=== PATIENT | male | born 1965 | race Caucasian/White ===

== ENCOUNTER 2023-07-20 11:46 | Emergency (ER) | payer SELFPAY ==
[2023-07-20] VITALS (7 sets, daily range): BP systolic 123–136; BP diastolic 79–89; PULSE 66–82; RESP 11–19; TEMP 36.4–37.1; O2SAT 96–100; BMI 31.4
--- NOTE | 2023-07-20 12:21 | EKG12_ITS ---
Test Reason : GENERAL Blood Pressure : / mmHG Vent. Rate : 071 BPM Atrial Rate : 071 BPM P-R Int : 176 ms QRS Dur : 092 ms QT Int : 378 ms P-R-T Axes : 064 012 025 degrees QTc Int : 410 ms Normal sinus rhythm Normal ECG Confirmed by ROMAIN GUPTA MD ([id number]), web content editor KARLA MCCONNELL ([id number]) on 07/21/2023 9:02:02 AM Referred By: Confirmed By:ROMAIN GUPTA MD
--- NOTE | 2023-07-20 12:30 | EX.ED.UPPERE ---
HPI History of Present Illness Chief Complaint: Upper Extremity Injury Informant: patient Narrative Narrative: 58-year-old male presenting to the emergency room with bilateral intermittent arm and chest numbness. Patient states that typically when he exerts himself very hard he gets a numb like sensation of the entirety of both arms and across to his anterior chest. He denies dyspnea nausea vomiting jaw pain or sweating. He states has been happening for couple weeks. He states that he can feel things in the arms with touch but it is a numb like sensation. He denies any difficulties in between episodes. He is a longtime smoker. He states he is worried about his heart. He denies cough or fever. PFSH PFSH Home Medications NK 07/20/23 [History Last Taken Unknown] Allergy/AdvReac Type Severity Reaction Status Date / Time No Known Allergies Allergy Verified 07/20/23 11:49 Surgical History H/O wrist surgery Social History (Updated 07/20/23 @ 12:[address] Jeb Sánchez, ) Smoking Status: Current every day smoker tobacco type: e-cigarettes ROS ROS ED Constitutional Constitutional ED: Denies chills, fever(s) or weight loss Eyes Eyes: Denies change in vision or diplopia ENT ENT ED: Denies ear pain, rhinorrhea or sore throat Cardiovascular Cardiovascular: Reports chest pain; Denies orthopnea, palpitations or racing heartbeat Respiratory/Chest Respiratory/Chest: Denies cough, dyspnea or orthopnea Gastrointestinal Gastrointestinal: Denies abdominal pain, diarrhea, nausea or vomiting Genitourinary Genitourinary ED: Denies dysuria, hematuria or urinary frequency Musculoskeletal Musculoskeletal: Denies arthralgias or myalgias Integumentary Denies abscess or rash Neurologic Neurologic: Reports paresthesias; Denies headache(s) or weakness Psychiatric Psychiatric: Denies anxiety, depression, suicidal ideation or suicidal thoughts Endocrine Endocrinology: Denies polydipsia, polyphagia or polyuria Allergic/Immunologic Allergic/Immunologic ED: Denies mouth swelling, tongue swelling or urticaria EXAM Physical Exam Const Vital Signs: 07/20/23 11:48 Temperature 98.8 F Temperature Source Temporal Pulse Rate 82 Respiratory Rate 14 Blood Pressure 136/84 H Blood Pressure Mean 101 Pulse Ox 100 Oxygen Delivery Method Room Air Positive well nourished and well developed General Appearance ED: well developed HEENT Reports normocephalic, head/scalp atraumatic and moist mucous membranes Eyes PERRL and EOMs intact bilaterally Neck no lymphadenopathy, supple and no JVD Resp normal respiratory effort and clear to auscultation bilaterally Cardio regular rate, regular rhythm and no murmurs GI normal to inspection, nondistended, normoactive bowel sounds and non-tender Palpation: soft Back/Spine no CVA tenderness and normal ROM Extremity normal to inspection General Extremety ED: Negative for edema General Extremity: Negative for edema Neuro oriented x3 and CN's II-XII intact bilaterally Sensorium / Orientation: alert Motor Exam: strength 5/5 throughout Psych mental status grossly normal Mood & Affect: Negative for depressed or tearful Skin no rashes or lesions noted and no wounds MDM MDM MDM Narrative Medical decision making narrative: Differential diagnosis includes but not limited to acute coronary syndrome lung disease such as COPD electrolyte disturbance vascular compromise. My depend interpretation of the chest x-ray is no acute process. Normal mediastinal silhouette EKG is a sinus rhythm without concerning features of ACS. 2 sets of cardiac enzymes are normal. Electrolytes are stable within normal limits glucose of 115. Creatinine is normal. I am not seeing evidence of any cardiac damage. I explained to the patient that I cannot fully rule out the possibility that he could have a blockage in one of his coronary arteries. His heart score is low enough that he could follow-up as an outpatient for stress testing. He does not have a primary care doctor suddenly refer him to cardiology. I do not believe he has aortic dissection. I am not seeing evidence of vena cava syndrome. It is intermittent in nature and does not have any neck pain so I doubt this would be cervical stenosis. I sat down and explained the above results with the patient as well as possible etiologies for his symptoms. He is amendable to follow-up and I will provide him the resources to do so. He understands should his symptoms become constant or worse he needs return to the emergency department for evaluation.. History & Record Review Discussion w/independent historian: Patient Lab Data Attestation: I reviewed the patient's lab results. Labs: Laboratory Tests 07/20/23 07/20/23 Range/Units 14:30 12:35 WBC 7.4 (4.4-11.0) K/mm3 RBC 4.92 (4.6-6.2) M/mm3 Hgb 14.3 (13.0-16.5) g/dL Hct 43.9 (40-54) % MCV 89.2 (80-94) fL MCH 29.1 (27.0-32.0) pg MCHC 32.6 (32-36) g/dL RDW Std Deviation 41.5 (35.1-43.9) fl RDW Coeff of Shazia 12.7 (11.6-14.6) % Plt Count 277 (150-450) K/mm3 MPV 10.0 (6.2-12.0) fl Immature Gran % (Auto) 0.300 (0.0-0.9) % Neut % (Auto) 54.3 (47-70) % Lymph % (Auto) 31.3 (19-41) % [place] % (Auto) 7.6 (0-10) % Eos % (Auto) 5.4 H (0-5) % Baso % (Auto) 1.1 H (0-1) % Absolute Neuts (auto) 4.0 (2.0-7.7) X10^3/uL Absolute Lymphs (auto) 2.30 (0.83-4.51) X10^3/uL Nucleated RBC % 0 (0-5) % Sodium 139 (136-145) mmol/L Potassium 3.8 (3.5-5.1) mmol/L Chloride 108 H (98-107) mmol/L Carbon Dioxide 25.0 (21.0-32.0) mmol/L Anion Gap 6 (5-15) BUN 16 (7-18) mg/dL Creatinine 0.80 (0.70-1.30) mg/dL Estim Creat Clear Calc 104.99 ml/min Est GFR (MDRD) Af Amer 127 (>60) mL/min Est GFR (MDRD) Non-Af 105 (>60) mL/min BUN/Creatinine Ratio 20.0 (10-20) RATIO Glucose 115 H (74-106) mg/dL Calcium 8.8 (8.5-10.1) mg/dL Troponin I High Sens 47 40 (3.0-78.0) pg/mL Radiography Diagnostic Testing: Clinical Impression(s) from Imaging Studies Chest X-Ray 07/20/23 13:05 IMPRESSION: Normal x-ray examination of the chest. Small hiatal hernia. Electronically Signed: Prashant Selby MD at 13:22 EDT , EKG Initial EKG: Attestation: I personally reviewed and interpreted this EKG as follows: Comments: Normal sinus rhythm ventricular rate of 71 bpm Discharge Plan Triage Chief Complaint: Upper Extremity Injury ED Provider: Jeb Sánchez Dx/Rx/DC Orders Clinical Impression: Paresthesia of right arm, Paresthesia of left arm, Chest pain Instructions: ED Chest Pain, Uncertain Cause Prescriptions: No Action NK Primary Care Provider: Care Physician,No Primary Referrals: Renan King MD [Med Staff - Active Staff] - As soon as possible Care Physician,No Primary [Primary Care Provider] - Activity Restrictions/Additional Instructions: I would strongly recommend you follow-up with cardiology and obtain cardiac stress testing. If your symptoms are not intermittent and become constant and or not resolving please return to emergency Disposition Disposition: Home, Self Care Discharge Date/Time: 07/20/23 16:04
[2023-07-20 12:54] LABS: Basophil# 0.08 X10^3/uL; Basophil% 1.1 % (0-1); Eosinophils% 5.4 % (0-5); Hematocrit 43.9 % (40-54); Hemoglobin 14.3 g/dL (13.0-16.5); Lymphocyte % 31.3 % (19-41); Mean Corp Hgb Conc 32.6 g/dL (32-36); Mean Corpuscular Hgb 29.1 pg (27.0-32.0); Mean Corpuscular Volume 89.2 fL (80-94); Monocyte# 0.56 X10^3/uL; Monocyte% 7.6 % (0-10); NRBC Flagged by Analyzer 0 % (0-5); Neutrophil % 54.3 % (47-70); Platelet Count 277 K/mm3 (150-450); RBC Distribution Width CV 12.7 % (11.6-14.6); RBC Distribution Width SD 41.5 fl (35.1-43.9); Red Blood Count 4.92 M/mm3 (4.6-6.2); White Blood Count 7.4 K/mm3 (4.4-11.0)
--- NOTE | 2023-07-20 13:05 | RAD_ITS ---
STUDY: X-RAY CHEST REASON FOR EXAM: Male, 58 years old. Chest pain TECHNIQUE: Single AP portable view of the chest. COMPARISON: None. FINDINGS: The lungs are clear and expanded. There is no demonstrated pleural abnormality. Normal size heart. Normal mediastinum and mirella. Normal visualized pulmonary arteries. Normal visualized aortic arch and descending thoracic aorta. Normal visualized thoracic spine. Normal visualized ribs, clavicles, and shoulders. Small hiatal hernia. RAD/Chest 1 View (Portable) IMPRESSION: Normal x-ray examination of the chest. Small hiatal hernia. Electronically Signed: Prashant Selby MD at 13:22 EDT ,
[2023-07-20 13:10] LABS: Anion Gap 6 (5-15); BUN 16 mg/dL (7-18); Calcium,Total 8.8 mg/dL (8.5-10.1); Chloride 108 mmol/L (98-107); EST Glomerular Filtration Rate 105 mL/min (>60); Est Glom Filt Rate - Afr Amer 127 mL/min (>60); Estimated Creatinine Clearance 104.99 ml/min; Glucose 115 mg/dL (74-106); Potassium 3.8 mmol/L (3.5-5.1); Sodium Level 139 mmol/L (136-145); Troponin-I HS (w/2H Reflex) 40 pg/mL (3.0-78.0)
--- NOTE | 2023-07-20 13:20 | NURSING ---
NO OLD EKGS
[2023-07-20 14:50] LABS: Reflex Troponin-HS? (from REC) Y
[2023-07-20 15:22] LABS: Troponin-I HS 47 pg/mL (3.0-78.0)
== END 2023-07-20 16:04 | disposition home or self-care (01) ==
PROVIDERS: Emergency Provider Emergency Medicine; Visit Provider Emergency Medicine
DX: R20.2 Paresthesia of skin (principal); R07.9 Chest pain, unspecified; F17.290 Nicotine dependence, other tobacco product, uncomplicated
CPT/HCPCS: 71045; 80048; 84484; 85025; 93005; 99284; A4216

== ENCOUNTER → 2023-09-14 | Outpatient (CLI) | payer SELFPAY ==
[2023-09-02 09:06] LABS: Cholesterol 305 mg/dL (200); High Density Lipoprotein 37 mg/dL; Triglycerides 159 mg/dL; Very Low Density Lipoprotein 32 mg/dL (5-40)
--- NOTE | 2023-09-14 12:06 | CT_ITS ---
STUDY: CT CHEST T ABDOMEN WITH CONTRAST REASON FOR EXAM: Male, 58 years old. chest pain OVER READ ONLY RADIATION DOSAGE (If Supplied By Facility): CTDIvol = ( 31.54 ) mGy, DLP = ( 1334.12 ) mGycm TECHNIQUE: Transaxial imaging was performed following intravenous administration of IV 67mL Isovue-370. Individualized dose optimization techniques were used for this CT. COMPARISON: No relevant priors. FINDINGS: CHEST Increased linear markings are seen in the anterior aspect of the left upper lobe suggestive of scarring. Mild increased markings are also seen along the anterior medial aspect of the right middle lobe suggestive of scarring. There is no demonstrated pleural abnormality. There are calcifications of the coronary arteries. There are small small lymph nodes within the mediastinum, which are normal in size and morphology most compatible with reactive lymph hyperplasia. Normal hilar regions. Normal unenhanced pulmonary arteries. There is atherosclerotic calcification of the aortic arch. Normal osseous structures. Moderate-sized hiatal hernia. CT/Cardiac Angiography CTA IMPRESSION: Coronary artery calcification. Scarring in both upper lobes more pronounced in the left upper lobe. Electronically Signed: Prashant Selby MD at 11:23 EDT ,
[2023-09-14 12:59] VITALS: BP 122/86; PULSE 70; RESP 14; O2SAT 95; BMI 39.0
[2023-09-14 13:12] VITALS: PULSE 70
[2023-09-14] MEDS: Nitroglycerin SL (ED/IMG/CATH) 0.4 MG TABLET SL (13:12)
[2023-09-14 13:18] VITALS: BP 117/66; PULSE 77; RESP 14; O2SAT 98
--- NOTE | 2023-09-25 16:22 | CCTA.WCONT ---
CCTA w/Cont Coronary Arteries Date of Study:: 09/14/23 Chest pain Coronary Calcium Scoring: High-resolution Computed Tomographic imaging of the chest was performed on [09/14/2023], with particular attention paid to the coronary arteries. Intravenous contrast agent was administered per protocol and images reconstructed and displayed. LEFT MAIN CORONARY ARTERY: Arises from the left coronary cusp with no significant atherosclerotic plaquing noted [] LEFT ANTERIOR DESCENDING CORONARY ARTERY: Very suboptimal study with significant calcification noted in the proximal and mid left anterior descending artery. Comments about this level of stenosis is not possible due to the suboptimal quality. [] LEFT CIRCUMFLEX CORONARY ARTERY: No comment can be made on this vessel. [] RIGHT CORONARY ARTERY: Suboptimal CT angiogram with focal calcification noted in the mid right coronary artery. Conclusion: Suboptimal CT angiogram with evidence of calcification noted in the proximal, mid left anterior descending artery, and mid right coronary artery. Will recommend alternate form of testing for ischemia evaluation.
== END | disposition home or self-care (01) ==
LOC: CT 12:05
PROVIDERS: Referring Provider Internal Medicine Cardiovascular Disease; Visit Provider Internal Medicine Cardiovascular Disease
DX: M79.601 Pain in right arm (principal); M79.602 Pain in left arm; R07.9 Chest pain, unspecified; F17.200 Nicotine dependence, unspecified, uncomplicated
CPT/HCPCS: 36415; 75574; 76380; 80061; Q9967

== ENCOUNTER → 2023-10-24 | Outpatient (CLI) | payer OTHER, SELFPAY ==
[2023-10-24 10:51] LABS: Hematocrit 50.7 % (40-54); Hemoglobin 16.3 g/dL (13.0-16.5); Mean Corp Hgb Conc 32.1 g/dL (32-36); Mean Corpuscular Hgb 28.9 pg (27.0-32.0); Mean Corpuscular Volume 89.9 fL (80-94); Mean Platelet Vol. 10.4 fl (6.2-12.0); Platelet Count 307 K/mm3 (150-450); RBC Distribution Width CV 13.4 % (11.6-14.6); RBC Distribution Width SD 44.4 fl (35.1-43.9); Red Blood Count 5.64 M/mm3 (4.6-6.2); White Blood Count 9.9 K/mm3 (4.4-11.0)
[2023-10-24 10:59] LABS: International Normalized Ratio 0.9; Prothrombin Time (Protime)PT. 11.7 SECONDS (11.7-14.9)
[2023-10-24 11:00] LABS: Partial Thromboplast Time 29.8 Seconds (24.1-36.2)
[2023-10-24 11:19] LABS: Anion Gap 3 (5-15); BUN 15 mg/dL (7-18); BUN/Creat Ratio 17.8 RATIO (10-20); Calcium,Total 9.9 mg/dL (8.5-10.1); Chloride 105 mmol/L (98-107); Creatinine, Serum 0.84 mg/dL (0.70-1.30); EST Glomerular Filtration Rate 99 mL/min (>60); Est Glom Filt Rate - Afr Amer 120 mL/min (>60); Glucose 93 mg/dL (74-106); Sodium Level 138 mmol/L (136-145)
== END | disposition home or self-care (01) ==
PROVIDERS: Referring Provider Internal Medicine Cardiovascular Disease; Visit Provider Internal Medicine Cardiovascular Disease
DX: E78.5 Hyperlipidemia, unspecified (principal); I25.119 Atherosclerotic heart disease of native coronary artery with unspecified angina pectoris; F17.200 Nicotine dependence, unspecified, uncomplicated; M79.601 Pain in right arm; M79.602 Pain in left arm
CPT/HCPCS: 36415; 80048; 85027; 85610; 85730

== ENCOUNTER 2023-11-16 06:59 | Day surgery (SDC) | payer OTHER, SELFPAY ==
[2023-11-15 08:25] VITALS: BMI 37.0
--- NOTE | 2023-11-16 10:44 | CL.D_ITS ---
Patient Name: ALESSANDRA BLACK Study Date: 11/16/2023 Performing: John Du MD Ht: 60 inches 152.4 cm : 1965 Wt: 189.99 lbs 86.18 kg Age: 58 Gender: male BSA: 1.83 PROCEDURE(S) PERFORMED DC01-(81243)LHC/COR/LV CLINICAL PROFILE AND INDICATIONS Indications: Suspected CAD Heart Failure: None Angina Classification Anginal Classification w/in 2 Weeks: CCS II CAD Presentations: Stable angina. CONCLUSIONS HOG TENDER Prox RCA; RPLV filling retrogradely via collaterals from left system 90% Prox, 80% Mid LAD 60% Mid LCX, 70% Prox OM1 LVEF 50% RECOMMENDATIONS Surgery consult for coronary revascularization DESCRIPTION OF PROCEDURE The patient arrived to the procedure lab. The risks and benefits of the procedure as well as a full description of our services here and current unavailability of surgical backup were fully explained to the patient and/or their significant other prior to the catheterization. The Timeout was completed, verifying the correct patient and procedure. The patient's procedural site was prepped and draped in the usual fashion. Local anesthetic was given subcutaneously to right radial region with Lidocaine 2%. Using a modified Seldinger technique, arterial access was obtained via the right radial artery, a 6Fr sheath was inserted. Right Coronary Artery selective angiography was then performed in multiple views using a 5 Fr. 4.0 Goodwater catheter. Left Coronary Artery selective angiography was performed in multiple views using a 5 Fr. 4.0 Good[place] catheter. Left Ventriculography was performed in DOUGLAS projection using a 5 Fr. Pigtail catheter. LV to AO pullback pressures were then recorded.The arterial sheath was pulled and a TR Band was applied for hemostasis w/ 11ml air CORONARY ANGIOGRAPHY DOMINANCE: Right Dominant LEFT HEART ASSESSMENT Left Ventricular Ejection Fraction: by LV Gram 50 % LVEDP: 28 mmHg LEFT MAIN: No significant disease noted LEFT ANTERIOR DESCENDING ARTERY: LAD: Tubular 90% Proximal lesion in LAD Tubular 80% Mid lesion in LAD OM 1: Tubular 70% Proximal lesion in MARG1 OM 2: Tubular 70% Proximal lesion in MARG1 RIGHT CORONARY ARTERY: RCA: Tubular Calcified 100% Proximal lesion in RCA COLLATERAL FLOW: Collateral flow from Conus to Acute Marginal Collateral flow from RCA to Acute Marginal Collateral flow from RCA to RCA Collateral flow from MARG1 to RT LV-BR COMPLICATIONS No Complications PROCEDURE MEDICATIONS Versed 1 mg IV Fentanyl 50 mcg IV Versed 1 mg IV Fentanyl 50 mcg IV Oxygen: 2 L/min via nasal cannula Heparin given IA 11/16/2023 09:54:07 Verapamil 2.5mg, Ntg 200mcgs, 2000 units of Heparin given IA 11/16/2023 09:54:07 IV Bolus: .9 NaCl 250 ml total 11/16/2023 10:00:49 SUMMARY OF HEMODYNAMIC DATA Time AIR REST ECG 07:29:23 ECG 07:30:35 AO 99/64 (79) SA 10:01:38 LV 115/18, 27 10:11:40 LV 117/19, 30 10:11:49 LV 120/14, 24 10:12:06 LV 121/16, 28 10:12:14 LV 124/25, 33 10:13:40 LV 119/20, 28 10:13:48 LVp 124/17, 27 10:13:53 AOp 120/73 (94) 10:14:00 Signed By John Du MD On 11/16/2023 10:43:17 John Du MD
--- NOTE | 2023-11-16 12:06 | ECHOD_ITS ---
Reason For Study: CAD, Chest pain Procedure This was a 2D Doppler, Color Flow transthoracic echocardiogram. Myocardial strain analysis was performed in this exam to aid in the assessment of cardiac function. Exam performed in department. Left Ventricle Normal size and thickness. The left ventricular ejection fraction is 55 %. No evidence for diastolic dysfunction. Right Ventricle Normal right ventricle. Atria The left and right atria are normal. Mitral Valve Trivial mitral valve insufficiency. Tricuspid Valve Mild tricuspid valve insufficiency. Normal pulmonary artery pressure. Aortic Valve Trisinus/trileaflet aortic valve. Aortic sclerosis, no stenosis. Pulmonic Valve The pulmonic valve is not well visualized. Great Vessels Normal sized aortic root. Pericardium/Pleural No pericardial effusion. MMode/2D Measurements & Calculations LVIDd: 4.4 cm IVSd: 0.98 cm LVOT diam: 2.3 cm LVIDs: 2.9 cm LVPWd: 0.98 cm LVOT area: 4.1 cm2 RVDd: 3.7 cm FS: 33.9 % Ao root diam: 3.3 cm LAV(MOD-bp): 45.3 ml LVAd ap4: 31.1 cm2 LAV(MOD-bp) Indexed: 24.8 ml/m2 LVLd ap4: 8.9 cm LAV(MOD-sp2): 33.6 ml EDV(MOD-sp4): 90.4 ml LAV(MOD-sp4): 55.6 ml EDV(sp4-el): 92.8 ml LVAs ap4: 18.6 cm2 LVLs ap4: 7.4 cm ESV(MOD-sp4): 39.1 ml ESV(sp4-el): 39.5 ml EF(MOD-sp4): 56.7 % EF(sp4-el): 57.5 % LVAd ap2: 33.1 cm2 SV(MOD-sp4): 51.2 ml SV(MOD-sp2): 57.5 ml LVLd ap2: 9.0 cm EDV(MOD-sp2): 100.3 ml EDV(sp2-el): 103.6 ml LVAs ap2: 20.1 cm2 LVLs ap2: 7.7 cm ESV(MOD-sp2): 42.8 ml ESV(sp2-el): 44.5 ml EF(MOD-sp2): 57.3 % SV(sp4-el): 53.3 ml LA dimension(2D): 3.7 cm LA A4 area: 19.8 cm2 RA A4 area: 14.6 cm2 TAPSE: 1.9 cm Time Measurements MV dec time: 0.29 sec Doppler Measurements & Calculations MV E max hemant: 62.6 cm/sec Lat Peak E' Hemant: 12.2 cm/sec Med Peak E' Hemant: 9.2 cm/sec MV A max hemant: 60.0 cm/sec E/E' lat: 5.1 E/E' med: 6.8 MV E/A: 1.0 Ao V2 max: 147.1 cm/sec LV V1 max: 127.8 cm/sec MV dec slope: 218.4 cm/sec2 Ao max P.7 mmHg LV V1 max P.5 mmHg Ao V2 mean: 100.9 cm/sec LV V1 mean P.4 mmHg Ao mean P.6 mmHg LV V1 mean: 85.4 cm/sec Ao V2 VTI: 29.2 cm LV V1 VTI: 28.6 cm AV (velocity ratio): 0.98 SHIRAZ(I,D): 4.0 cm2 SHIRAZ(V,D): 3.6 cm2 SV(LVOT): 118.2 ml PA V2 max: 78.0 cm/sec TR max hemant: 210.2 cm/sec TR max P.7 mmHg ECHO/Echo Complete Interpretation Summary The left ventricular ejection fraction is 55 %. Mild tricuspid valve insufficiency. Aortic sclerosis, no stenosis. Ordering Physician: John Du Referring Physician: John Du Performed By: Abby Trujillo RDCS
== END 2023-11-16 13:05 | disposition home or self-care (01) ==
PROVIDERS: Referring Provider Internal Medicine Cardiovascular Disease; Visit Provider Internal Medicine Cardiovascular Disease
DX: I25.118 Atherosclerotic heart disease of native coronary artery with other forms of angina pectoris (principal); F17.210 Nicotine dependence, cigarettes, uncomplicated; E78.5 Hyperlipidemia, unspecified
CPT/HCPCS: 93005; 93306; 93458; 99152; 99153; Q9967; C1769; C1894

== ENCOUNTER → 2024-01-06 | Outpatient (CLI) | payer OTHER, SELFPAY ==
--- NOTE | 2024-01-06 14:30 | RAD_ITS ---
INDICATION: Presence of aortocoronary bypass graft EXAMINATION/TECHNIQUE: X-RAY - XR Chest 2 Views COMPARISON: 07/20/2023. FINDINGS: Streaky opacities in the bilateral lower lobes. Sternal cerclage wires and vascular clips are present from a prior sternotomy and coronary artery bypass graft procedure (CABG). Rotation calcified thoracic aorta. Heart is not enlarged. No pleural effusion or pneumothorax. No acute osseous abnormalities. RAD/Chest PA and Lateral IMPRESSION: Streaky opacities in the bilateral lower lobes represent atelectasis versus infection. Electronically Signed: Cristofer Card MD at 20:39 EDT ,
[2024-01-06 14:54] LABS: Absolute Neutrophil Count 8.2 X10^3/uL (2.0-7.7); Basophil# 0.12 X10^3/uL; Eosinophil# 0.69 X10^3/uL; Eosinophils% 5.5 % (0-5); Hematocrit 35.9 % (40-54); Hemoglobin 11.1 g/dL (13.0-16.5); Lymphocyte % 19.1 % (19-41); Mean Corp Hgb Conc 30.9 g/dL (32-36); Mean Corpuscular Hgb 27.9 pg (27.0-32.0); Mean Corpuscular Volume 90.2 fL (80-94); Mean Platelet Vol. 9.4 fl (6.2-12.0); Monocyte# 1.09 X10^3/uL; Monocyte% 8.7 % (0-10); NRBC Flagged by Analyzer 0 % (0-5); Neutrophil # 8.18 X10^3/uL (2.7-7.7); Neutrophil % 64.9 % (47-70); Platelet Count 693 K/mm3 (150-450); RBC Distribution Width CV 14.3 % (11.6-14.6); RBC Distribution Width SD 46.9 fl (35.1-43.9); Red Blood Count 3.98 M/mm3 (4.6-6.2); White Blood Count 12.6 K/mm3 (4.4-11.0)
[2024-01-06 15:15] LABS: Anion Gap 6 (5-15); BUN 15 mg/dL (7-18); BUN/Creat Ratio 16.1 RATIO (10-20); Calcium,Total 9.3 mg/dL (8.5-10.1); Chloride 103 mmol/L (98-107); Creatinine, Serum 0.93 mg/dL (0.70-1.30); EST Glomerular Filtration Rate 88 mL/min (>60); Est Glom Filt Rate - Afr Amer 106 mL/min (>60); Glucose 95 mg/dL (74-106); Potassium 4.3 mmol/L (3.5-5.1); Sodium Level 134 mmol/L (136-145)
== END | disposition home or self-care (01) ==
LOC: LAB 14:01
DX: Z95.1 Presence of aortocoronary bypass graft (principal)
CPT/HCPCS: 36415; 71046; 80048; 85025

== ENCOUNTER → 2024-01-11 | Outpatient (CLI) | payer OTHER, SELFPAY | END | disposition home or self-care (01) | DX: Z95.1 Presence of aortocoronary bypass graft (principal) ==

== ENCOUNTER 2024-05-16 09:43 | Emergency (ER) | payer OTHER, SELFPAY ==
[2024-05-16 09:45] VITALS: BP 187/100; PULSE 89; RESP 16; TEMP 36.3; O2SAT 99; BMI 31.8
--- NOTE | 2024-05-16 10:16 | EX.ED.UPPERE ---
HPI History of Present Illness HPI Narrative: Patient presents with injury to his right index finger that occurred today. Patient states it got caught in a saw. Patient cut a distal phalanx of his right index finger off. Patient placed the amputated digit on ice. Patient is unsure of his last tetanus. Patient describes his pain as burning. Patient states nothing makes it worse and nothing makes it better. Patient denies any paresthesias or weakness. Patient denies any other injuries. Chief Complaint: Laceration Informant: patient Occured/Mechanism Mechanism/Context: Yes work related Comment: Amputation of finger with saw Onset/Context/Timing Onset: Today Context: Sudden Onset (Approximately 0900) Timing: Continuous Quality of Pain: Burning Location: Right index finger Worsened by: Nothing Relieved by: Nothing Associated Symptoms Associated Symptoms: Negative for Parasthesia, Weakness or Loss of Funtion Narrative Tetanus Immunization: Unknown [facility] Medical History (Updated 05/16/24 @ 12:[address] Braden Narayanan, ) Bilateral arm pain Nicotine dependence Chest pain Paresthesia of left arm Paresthesia of right arm Home Medications ?Medication ?Instructions ?Recorded ?Last Taken ?Type nitroglycerin 0.4 mg sublingual 0.4 mg sublingual Q5-15M PRN chest 08/18/23 Unknown Rx tablet pain #28 tabs amlodipine 5 mg tablet 5 mg PO DAILY #90 tabs 10/24/23 Unknown Rx aspirin 81 mg tablet,delayed 81 mg PO DAILY 10/24/23 11/16/23 History release pravastatin 40 mg tablet 40 mg PO QDAY #90 tabs 02/07/24 Unknown Rx cephalexin 500 mg capsule 500 mg PO Q6 #28 CAPSULES 05/16/24 Unknown Rx hydrocodone-acetaminophen 5-325mg 1 tab PO Q6H PRN PRN Pain 3 days 05/16/24 Unknown Rx 5mg-325mg #10 TABLETS Allergy/AdvReac Type Severity Reaction Status Date / Time No Known Allergies Allergy Verified 05/16/24 09:48 Surgical History S/P CABG (coronary artery bypass graft) H/O wrist surgery Social History Smoking Status: Former smoker alcohol intake: never substance use type: does not use caffeine: Yes Type: coffee Number of servings: 4 ROS ROS ED Constitutional Constitutional ED: Denies chills or fever(s) Eyes Eyes: Denies blurry vision or change in vision ENT ENT ED: Denies rhinorrhea or sore throat Cardiovascular Cardiovascular: Denies chest pain or palpitations Respiratory/Chest Respiratory/Chest: Denies cough or dyspnea Gastrointestinal Gastrointestinal: Denies nausea or vomiting Genitourinary Genitourinary ED: Denies dysuria or hematuria Musculoskeletal Musculoskeletal: Denies back pain or neck pain Integumentary Denies abscess or rash Neurologic Neurologic: Denies headache(s) or weakness Allergic/Immunologic Allergic/Immunologic ED: Denies mouth swelling or urticaria EXAM Physical Exam Const Vital Signs: 05/16/24 09:45 Temperature 97.4 F L Temperature Source Oral Pulse Rate 89 Respiratory Rate 16 Blood Pressure 187/10 H Blood Pressure Mean 69 Pulse Ox 99 Oxygen Delivery Method Room Air Positive well nourished and well developed General Appearance ED: well developed and NAD HEENT Reports moist mucous membranes Neck full ROM and supple Extremity Extremity Narrative: There is an amputation of the distal phalanx of the right index finger. There is moderate bleeding. There are no foreign bodies noted. Sensation was intact to light touch in all digits. Capillary refill was less than 2 seconds in all digits. Neuro oriented x3, CN's II-XII intact bilaterally, moves all extremities, no focal motor deficits and no sensory deficits noted Sensorium / Orientation: alert Motor Exam: strength 5/5 throughout Psych mental status grossly normal MDM MDM MDM Narrative Medical decision making narrative: X-rays of the right index finger will be obtained to assess for fracture and level of amputation. Radiography Diagnostic Testing: X-rays of the right index finger were obtained. There are 3 views. On my independent interpretation, there is a amputation of the distal portion of the distal phalanx of the right index finger. There are no radiopaque foreign bodies noted. Radiologist also interpreted the x-rays and agrees. Treatment and Re-Evaluation Narrative: Patient was given a dose of Ancef. Patient is given a tetanus booster. Patient was given a dose of morphine. Case was discussed with Dr. Anaya from plastic surgery. He was in to evaluate the patient. He was able to repair the the finger wound. He recommended giving the patient Keflex for 1 week. He will follow-up with the patient in his office next week. Patient was instructed to return if worse in any way. Patient was instructed to keep the right index finger elevated. Patient understood and was agreeable with the plan. All questions were answered. 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, Nicotine dependence Instructions: ED Laceration, Hand: All Closures Prescriptions: New hydrocodone-acetaminophen 5-325 mg tablet 1 tab PO Q6H PRN PRN (Reason: Pain) 3 Days Qty: 10 0RF cephalexin 500 mg capsule 500 mg PO Q6 Qty: 28 0RF No Action nitroglycerin 0.4 mg tablet, sublingual 0.4 mg sublingual Q5-15M PRN (Reason: chest pain) Qty: 28 11RF Rx Instructions: do not exceed 3 doses per episode aspirin 81 mg tablet,delayed release (DR/EC) 81 mg PO DAILY amlodipine 5 mg tablet 5 mg PO DAILY Qty: 90 3RF pravastatin 40 mg tablet 40 mg PO QDAY Qty: 90 3RF Primary Care Provider: Care Physician,No Primary Referrals: Bryan Anaya MD [Med Staff - Active Staff] - 1 Week Care Physician,No Primary [Primary Care Provider] - Print Language: Omani Disposition Disposition: Home, Self Care
--- NOTE | 2024-05-16 10:20 | RAD_ITS ---
INDICATION: Injury/Pain -- Please add amputated digit to x-ray EXAMINATION/TECHNIQUE: X-RAY - RIGHT HAND XR Fingers Min 2 Views 3 VIEWS COMPARISON: No relevant prior comparison study available FINDINGS: SOFT TISSUES: Dressing overlying the distal phalanx of the second finger. BONES/JOINTS: Partial amputation of the distal phalanx of the second finger. Soft tissue loss.. The remainder of the osseous structures appear intact. Preservation of the joint space.. No sclerotic or destructive changes observed. RAD/Finger(s) Min 2 Views IMPRESSION: Partial amputation of the distal phalanx of the second finger. Electronically Signed: Mane Nix MD at 11:12 EST ,
[2024-05-16] MEDS: Diphth,Pertuss(Acell),Tet Vac 0.5 ML Vial IM (10:29)
[2024-05-16] MEDS: Cefazolin 1 GM/50 ML BAG IV (10:38)
--- NOTE | 2024-05-16 10:55 | ED.RN ---
CALLED [facility], THEY WILL NOT BE OUT TO SEE A PATIENT FOR A DRUG TEST UNLESS IT IS AFTER 6 PM.
[2024-05-16] MEDS: Morphine 4 MG/ML Syringe IV (10:57)
--- NOTE | 2024-05-16 11:20 | ED.RN ---
audio visual secretary spoke with drug screen. 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 pt and family aware and educated that it is okay to take morphine.
--- NOTE | 2024-05-16 11:30 | EX.PCM.CON.S ---
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 I talked to him about lack of soft tissue for coverage of the remaining distal phalanx. We talked about percent loss of hand function with DIP joint level amputation of the index finger. We talked about the risks, benefits, and alternatives to revision amputation of the index finger versus attempt at soft tissue reconstruction (discussed local and regional flap reconstructions and grafts/dermal substitutes). Patient's goal is to get back to work and to get healed. He agreed with plan for revision amputation so as to get the wound closed. Furthermore we talked about infection, bleeding, neuromas, and wound problems requiring further procedures. Please see separate operative note for details regarding the revision amputation/closure. Patient was placed on Keflex 500 mg p.o. 3 times daily for 1 week Plan to follow-up in my clinic in 2 days for wound check HPI Consult Data Date of Consult: 05/16/24 HPI Narrative HPI Narrative: ALESSANDRA BLACK, is a 58-year-old [id number] male who presents with partial amputation of his right index finger after a saw injury while at work today. Patient is a diesel motor mechanic. He reports sharp severe pain in the right upper extremity worsened by movements and improved with rest and elevation. His tetanus was updated via the emergency room physician. Patient quit smoking in November 2023 when he had a CABG. [facility] Medical History (Updated 05/16/24 @ 12:[address] Braden Narayanan, DO) Bilateral arm pain Nicotine dependence Chest pain Paresthesia of left arm Paresthesia of right arm Home Medications ?Medication ?Instructions ?Recorded ?Last Taken ?Type nitroglycerin 0.4 mg sublingual 0.4 mg sublingual Q5-15M PRN chest 08/18/23 Unknown Rx tablet pain #28 tabs amlodipine 5 mg tablet 5 mg PO DAILY #90 tabs 10/24/23 Unknown Rx aspirin 81 mg tablet,delayed 81 mg PO DAILY 10/24/23 11/16/23 History release pravastatin 40 mg tablet 40 mg PO QDAY #90 tabs 02/07/24 Unknown Rx cephalexin 500 mg capsule 500 mg PO Q6 #28 CAPSULES 05/16/24 Unknown Rx hydrocodone-acetaminophen 5-325mg 1 tab PO Q6H PRN PRN Pain 3 days 05/16/24 Unknown Rx 5mg-325mg #10 TABLETS Allergy/AdvReac Type Severity Reaction Status Date / Time No Known Allergies Allergy Verified 05/16/24 09:48 Surgical History S/P CABG (coronary artery bypass graft) H/O wrist surgery Social History Smoking Status: Former smoker alcohol intake: never substance use type: does not use caffeine: Yes Type: coffee Number of servings: 4 Physical Exam Narrative Right Upper Extremity Inspection: Amputation at the level of the distal phalanx base on the index finger with a dorsal avulsion injury and paucity of soft tissue covering the remaining distal phalanx and the middle phalanx dorsally. Motor: Able to bend and extend all MP, PIP, and DIP joints, except unable to bend/extend DIP of index. Sensory: Intact to light touch on the radial and ulnar borders. Vascular: Finger tips are warm and well perfused with <2 second capillary refill. Imaging Radiology Impression Finger X-Ray 05/16/24 10:20 IMPRESSION: Partial amputation of the distal phalanx of the second finger. Electronically Signed: Mane Nix MD at 11:12 EST , I reviewed the x-ray and discussed with the patient Charges/Coding Visit Charges Office Visits / Consults: 40246 OV L5 New 60min
--- NOTE | 2024-05-16 11:31 | OP.PCM_ITS ---
Operative Report (Standard) Operative Information Date of Procedure: 05/16/24 Pre-Operative Diagnosis: Right index finger partial amputation at the level of the right index finger distal phalanx base Post-Operative Diagnosis: Same Surgery/Procedure Performed: Revision amputation of the right index finger to the level of P2 (CPT: 72309) patternmaker all around: No Type of Anesthesia: Local (5 cc of 1% lidocaine for a digital block ) Procedure Start Time: 12:00 Procedure Stop Time: 12:20 Select all DRAINS/GRAFTS/IMPLANTS that apply: None Estimated Blood Loss: 5 cc Specimen collected: No Description of surgery: Indications: Patient is a 58-year-old male who had a saw injury to his right index finger at work amputating the index fingertip at the level of the base of the distal phalanx, sustaining a soft tissue avulsion injury as well. I talked to the patient extensively about his injury. We talked about the and practicality of reattaching the digit at this level (no blood vessels for microvascular anastomoses and also unlikely to survive if reattached primarily). I talked to him about lack of soft tissue for coverage of the remaining distal phalanx. We talked about percent loss of hand function with DIP joint level amputation of the index finger. We talked about the risks, benefits, and alternatives to revision amputation of the index finger versus attempt at soft tissue reconstruction (discussed local and regional flap reconstructions and grafts/dermal substitutes). Patient's goal is to get back to work and to get healed. He agreed with plan for revision amputation so as to get the wound closed. Furthermore we talked about infection, bleeding, neuromas, and wound problems requiring further procedures. Procedure details: Patient was anesthetized with 5 cc of 1% lidocaine for digital block. A turnicot was applied. He was prepped and draped in sterile fashion. The remaining distal phalanx base was excised with a 15 blade scalpel and the edges of the wound were freshened. A rongeur was used to trim back the distal aspect of P2 and remove all cartilage. The wound was irrigated with copious amounts normal saline. Traction neurectomies were performed on the 2 distal transected nerves. The nail matrix had been completely avulsed/obliterated. Hemostasis was obtained with pen Bovie. The volar flap was rotated and advanced over the P2 bone and loosely closed with interrupted 3-0 nylon suture. Patient tolerated procedure. Xeroform, Lexi and Coban were applied. Postoperative plan: Follow-up in 2 days for wound check in the office Surgical Findings: Able to close volar flap over P2 Complications Complications: No
--- NOTE | 2024-05-16 12:32 | ED.RN ---
Unable to obtain vitals, Dr Anaya at bedside performing procedure
[2024-05-16 13:35] VITALS: BP 148/78; PULSE 72; RESP 16; TEMP 36.6; O2SAT 99
== END 2024-05-16 13:39 | disposition home or self-care (01) ==
PROVIDERS: Emergency Provider Emergency Medicine; Visit Provider Emergency Medicine
DX: S68.110A Complete traumatic metacarpophalangeal amputation of right index finger, initial encounter (principal); Z87.891 Personal history of nicotine dependence; Y99.0 Civilian activity done for income or pay; Z23 Encounter for immunization; W31.89XA Contact with other specified machinery, initial encounter
CPT/HCPCS: 26951; 73140; 90471; 90715; 96365; 96375; 99283; A4216